=== PATIENT | female | born 1960 | race Two or more races ===

== ENCOUNTER 2019-08-11 11:52 | Emergency (ER) | payer OTHER ==
[~2019-08-11] VITALS: Ht 157.5 cm; Wt 69.9 kg
[2019-08-11 12:26] VITALS: BP 143/84
[2019-08-11] MEDS ORDERED: KETOROLAC TROMETH 60MG/2ML VIAL IM ONE (13:00)
[2019-08-11] MEDS ORDERED: cefTRIAXone SOD 1,000 MG VL IM ONE (13:00)
== END 2019-08-11 13:19 | disposition home or self-care (01) ==
LOC: ER 11:52
DX: S61.452A Open bite of left hand, initial encounter (principal); S61.432D Puncture wound without foreign body of left hand, subsequent encounter; L08.9 Local infection of the skin and subcutaneous tissue, unspecified; W54.0XXA Bitten by dog, initial encounter; Y93.89 Activity, other specified; Y92.89 Other specified places as the place of occurrence of the external cause; Y99.8 Other external cause status
CPT/HCPCS: 96372; 99284; J0696; J1885